=== PATIENT | female | born 1970 | race African-American/Black ===

== ENCOUNTER 2018-03-28 11:49 | Inpatient (IN) | payer MEDICAID ==
[~2018-03-28] VITALS: Ht 162.6 cm; Wt 77.1 kg
[2018-03-28] MEDS ORDERED: SODIUM CHLORIDE 0.9% 1,000 ML IV ONE (12:21)
[2018-03-28 14:02] LABS: PARTIAL THROMBOPLASTIN TIME 26.7 sec (23.4-31.0); PROTHROMBIN TIME 10.2 sec (9.1-11.1)
[2018-03-28 14:03] LABS: CHLORIDE 108 mEq/L (98-107)
[2018-03-28 14:07] LABS: ETHANOL BLOOD < 10 mg/dL
[2018-03-28 14:10] LABS: HCG SCREEN NEGATIVE
[2018-03-28 14:11] LABS: *AMPHETAMINES SCREEN URINE NEGATIVE (NEGATIVE); *BARBITURATES SCREEN URINE NEGATIVE (NEGATIVE); *BENZODIAZEPINES SCREEN URINE NEGATIVE (NEGATIVE); *COCAINE SCREEN URINE NEGATIVE (NEGATIVE); METHADONE URINE SCREEN NEGATIVE (NEGATIVE); OPIATES URINE SCREEN NEGATIVE (NEGATIVE)
[2018-03-28 14:12] LABS: CANNABINOID URINE SCREEN NEGATIVE (NEGATIVE); PHENCYCLIDINE URINE SCREEN NEGATIVE (NEGATIVE)
[2018-03-28 14:24] LABS: BASOPHILS % 0.5 % (0.0-2.0); EOSINOPHILS % 0.7 % (0.0-5.0); HEMATOCRIT. 40.2 % (36.0-48.0); HEMOGLOBIN. 13.6 g/dL (12.0-16.0); LYMPHOCYTES % 13.4 % (20.0-50.0); MEAN CORPUSCULAR HEMOGLOBIN 29.6 pg (28.0-32.0); MEAN CORPUSCULAR VOLUME 87.3 fL (81.0-99.0); MEAN PLATELET VOLUME 8.5 fl (7.4-10.4); MONOCYTES % 10.1 % (2.0-8.0); NEUTROPHILS % 75.3 % (40.0-76.0); PLATELET 207 x1000/uL (130-400); RED BLOOD CELL COUNT 4.61 mill/uL (4.2-5.4); RED CELL DISTRIBUTION WIDTH 13.6 % (11.6-14.6)
[2018-03-28] MEDS ORDERED: POTASSIUM CHLORIDE 20MEQ TABLET SR PO ONE (14:45)
[2018-03-28] MEDS ORDERED: ONDANSETRON HCL 4MG/2ML INJ IV PRN (17:00)
[2018-03-28] MEDS ORDERED: ACETAMINOPHEN 650MG/20.3ML UDC GT PRN (17:00)
[2018-03-28] MEDS ORDERED: HYDROCODONE/ACETAMINOPHEN 5/325MG TABLET PO PRN (17:00)
[2018-03-28] MEDS ORDERED: ACETAMINOPHEN 650MG SUPP PR PRN (17:00)
[2018-03-28] MEDS ORDERED: ACETAMINOPHEN 325MG TABLET PO PRN (17:00)
[2018-03-28] MEDS ORDERED: HYDROCODONE/ACETAMINOPHEN 10/325MG TABLET PO PRN (17:00)
[2018-03-28 18:45] LABS: FOLIC ACID (FOLATE) SERUM 12.4 ng/mL (>5.38)
[2018-03-28 19:43] VITALS: BP 133/91
[2018-03-28 20:12] VITALS: BP 133/91
[2018-03-28] MEDS ORDERED: HYDR12.54 PO (20:30)
[2018-03-28] MEDS ORDERED: AMLO5TAB88 PO (20:30)
[2018-03-28] MEDS ORDERED: BENA20TA10 PO (20:30)
[2018-03-28] MEDS ORDERED: INFLUENZA VIRUS VACCINE(AFLURIA) 0.5ML SYR IM ONE (21:00)
[2018-03-28] MEDS: DEXT 5%/0.45% NACL 1000ML 1,000 ML IV SCH (21:15)
[2018-03-29] VITALS: BP 139/90
[2018-03-29 00:23] LABS: CREATINE KINASE 129 IU/L (26-192)
[2018-03-29 00:24] LABS: CREATINE KINASE MB FRACTION 1.1 ng/mL (0.5-3.6)
[2018-03-29 04:00] VITALS: BP 142/80
[2018-03-29 07:16] LABS: CHLORIDE 109 mEq/L (98-107)
[2018-03-29 07:17] LABS: HEMATOCRIT. 38.9 % (36.0-48.0); HEMOGLOBIN. 12.9 g/dL (12.0-16.0); MEAN CORPUSCULAR HEMOGLOBIN 28.9 pg (28.0-32.0); MEAN CORPUSCULAR VOLUME 87.5 fL (81.0-99.0); MEAN PLATELET VOLUME 8.6 fl (7.4-10.4); PLATELET 196 x1000/uL (130-400); RED BLOOD CELL COUNT 4.45 mill/uL (4.2-5.4); RED CELL DISTRIBUTION WIDTH 13.7 % (11.6-14.6)
[2018-03-29 07:31] LABS: CREATINE KINASE MB FRACTION 1.3 ng/mL (0.5-3.6); LDL CHOLESTEROL 132 mg/dL (5-100); T4 FREE 1.16 ng/dL (0.76-1.46)
[2018-03-29 07:32] LABS: CREATINE KINASE 122 IU/L (26-192)
[2018-03-29 07:33] LABS: HDL CHOLESTEROL 37 mg/dL (40-59)
[2018-03-29 08:00] VITALS: BP 136/97
[2018-03-29 11:08] LABS: CLARITY URINE CLEAR (CLEAR); COLOR URINE YELLOW (YELLOW); KETONES URINE NEGATIVE (NEGATIVE); LEUKOCYTE ESTERASE URINE NEGATIVE (NEGATIVE); NITRITE URINE NEGATIVE (NEGATIVE); OCCULT BLOOD URINE NEGATIVE (NEGATIVE); PROTEIN URINE NEGATIVE (NEGATIVE); SPECIFIC GRAVITY URINE 1.019 (1.005-1.030)
[2018-03-29 12:00] VITALS: BP 136/91
[2018-03-29] MEDS ORDERED: BENAZEPRIL 10MG TABLET PO SCH (12:00)
[2018-03-29] MEDS: NICOTINE 7MG PATCH TD SCH (12:34)
[2018-03-29] MEDS: HYDROCHLOROTHIAZIDE 12.5MG CAPSULE PO SCH (12:35)
[2018-03-29 14:08] LABS: PLATELET ESTIMATE NORMAL
[2018-03-29] MEDS: DEXT 5%/0.45% NACL 1000ML 1,000 ML IV SCH ×2 (16:40→21:19)
[2018-03-29] MEDS: THIAMINE HCL 100MG TABLET PO SCH (16:40)
[2018-03-29] MEDS: MULTIVITAMINS,THER W-MINERALS TABLET PO SCH (16:40)
[2018-03-29] MEDS: FOLIC ACID 1MG TABLET PO SCH (16:40)
[2018-03-29 16:44] VITALS: BP_SYST 120; BP_SYST 135; BP_SYST 139; BP_DIAS 85; BP_DIAS 88; BP_DIAS 95
[2018-03-29 20:00] VITALS: BP 133/90
[2018-03-29] MEDS: AMLODIPINE 5MG TABLET PO SCH (20:43)
[2018-03-30] VITALS (8 sets, daily range): BP systolic 118–153; BP diastolic 80–100
[2018-03-30 06:17] LABS: BASOPHILS % 0.4 % (0.0-2.0); HEMATOCRIT. 38.1 % (36.0-48.0); HEMOGLOBIN. 12.9 g/dL (12.0-16.0); LYMPHOCYTES % 55.9 % (20.0-50.0); MEAN CORPUSCULAR HEMOGLOBIN 29.5 pg (28.0-32.0); MEAN CORPUSCULAR VOLUME 87.5 fL (81.0-99.0); MEAN PLATELET VOLUME 8.4 fl (7.4-10.4); MONOCYTES % 12.9 % (2.0-8.0); NEUTROPHILS % 26.8 % (40.0-76.0); PLATELET 203 x1000/uL (130-400); RED BLOOD CELL COUNT 4.36 mill/uL (4.2-5.4); RED CELL DISTRIBUTION WIDTH 13.6 % (11.6-14.6)
[2018-03-30 06:34] LABS: CHLORIDE 107 mEq/L (98-107)
[2018-03-30 06:42] LABS: PHOSPHORUS 3.3 mg/dL (2.5-4.9)
[2018-03-30] MEDS: MULTIVITAMINS,THER W-MINERALS TABLET PO SCH (08:24)
[2018-03-30] MEDS: NICOTINE 7MG PATCH TD SCH (08:24)
[2018-03-30] MEDS: AMLODIPINE 5MG TABLET PO SCH ×2 (08:25→20:33)
[2018-03-30] MEDS: THIAMINE HCL 100MG TABLET PO SCH (08:25)
[2018-03-30] MEDS: FOLIC ACID 1MG TABLET PO SCH (08:25)
[2018-03-30] MEDS: HYDROCHLOROTHIAZIDE 12.5MG CAPSULE PO SCH (08:25)
[2018-03-30] MEDS: DEXT 5%/0.45% NACL 1000ML 1,000 ML IV SCH ×2 (08:26→20:34)
[2018-03-30] MEDS: BENAZEPRIL 10MG TABLET PO SCH (14:18)
[2018-03-31] VITALS (7 sets, daily range): BP systolic 130–148; BP diastolic 64–105
[2018-03-31 06:21] LABS: BASOPHILS % 0.3 % (0.0-2.0); EOSINOPHILS % 2.6 % (0.0-5.0); HEMATOCRIT. 39.9 % (36.0-48.0); HEMOGLOBIN. 13.5 g/dL (12.0-16.0); LYMPHOCYTES % 57.7 % (20.0-50.0); MEAN CORPUSCULAR HEMOGLOBIN 29.4 pg (28.0-32.0); MEAN CORPUSCULAR VOLUME 86.8 fL (81.0-99.0); MEAN PLATELET VOLUME 8.5 fl (7.4-10.4); MONOCYTES % 8.4 % (2.0-8.0); PLATELET 233 x1000/uL (130-400); RED BLOOD CELL COUNT 4.59 mill/uL (4.2-5.4); RED CELL DISTRIBUTION WIDTH 13.5 % (11.6-14.6)
[2018-03-31 06:39] LABS: CHLORIDE 106 mEq/L (98-107)
[2018-03-31 06:46] LABS: PHOSPHORUS 3.9 mg/dL (2.5-4.9)
[2018-03-31] MEDS: THIAMINE HCL 100MG TABLET PO SCH (08:36)
[2018-03-31] MEDS: MULTIVITAMINS,THER W-MINERALS TABLET PO SCH (08:36)
[2018-03-31] MEDS: NICOTINE 7MG PATCH TD SCH (08:36)
[2018-03-31] MEDS: HYDROCHLOROTHIAZIDE 12.5MG CAPSULE PO SCH (08:37)
[2018-03-31] MEDS: AMLODIPINE 5MG TABLET PO SCH (08:37)
[2018-03-31] MEDS: DEXT 5%/0.45% NACL 1000ML 1,000 ML IV SCH (08:37)
[2018-03-31] MEDS: FOLIC ACID 1MG TABLET PO SCH (08:37)
[2018-03-31] MEDS: BENAZEPRIL 10MG TABLET PO SCH (08:37)
[2018-03-31] MEDS ORDERED: BENA5TAB6 MT (20:58)
[2018-03-31] MEDS ORDERED: MULT-1146 PO (20:59)
[2018-03-31] MEDS ORDERED: B1/B1TAB5 MT (21:00)
[2018-03-31] MEDS ORDERED: NICO-645 TP (21:00)
[2018-03-31] MEDS ORDERED: HYDR12.54 MT (21:01)
[2018-03-31] MEDS ORDERED: FOLI-43 MT (21:01)
== END 2018-03-31 21:44 | disposition home or self-care (01) | DRG 817 ==
LOC: ER 11:49 → 6WST 14:21 → ENRESERV 17:24
PROVIDERS: ADMIT Internal Medicine; ATTEND Internal Medicine
PROC: 4A00X4Z Measurement of Central Nervous Electrical Activity, External Approach (ICD-10-PCS; principal; 2018-03-30)
DX: T43.642A Poisoning by ecstasy, intentional self-harm, initial encounter (principal); I27.20 Pulmonary hypertension, unspecified; E44.0 Moderate protein-calorie malnutrition; G90.8 Other disorders of autonomic nervous system; E66.9 Obesity, unspecified; E87.6 Hypokalemia; F32.9 Major depressive disorder, single episode, unspecified; J44.9 Chronic obstructive pulmonary disease, unspecified; I10 Essential (primary) hypertension; F16.10 Hallucinogen abuse, uncomplicated; E78.5 Hyperlipidemia, unspecified; F17.210 Nicotine dependence, cigarettes, uncomplicated; I95.1 Orthostatic hypotension; Y92.89 Other specified places as the place of occurrence of the external cause; Z71.6 Tobacco abuse counseling; Z71.51 Drug abuse counseling and surveillance of drug abuser; Z68.29 Body mass index [BMI] 29.0-29.9, adult
CPT/HCPCS: 36415; 70450; 70544; 70551; 71045; 80048; 80053; 80061; 80305; 81003; 82550; 82553; 82607; 82746; 83036; 83690; 83735; 83880; 84100; 84439; 84443; 84481; 84484; 84703; 85025; 85610; 85730; 90686; 92610; 93005; 93306; 93880; 93970; 97162; 97166; 99285; C1893; G0482; J7030